=== PATIENT | female | born 1975 | race Caucasian/White ===

== ENCOUNTER → 2019-06-28 | Outpatient (CLI) | payer BC ==
--- NOTE | 2019-06-28 14:03 | RADIOLOGY REPORT (SQ) ---
EXAM DESCRIPTION: U/S NON-OB PELVIS TV W/O DOP IMAGES COMPLETED DATE/TIME: 06/28/2019 1:42 pm REASON FOR STUDY: (R10.2)PELVIC AND PERINEAL PAIN R10.2 PELVIC AND PERINEAL PAIN COMPARISON: None. TECHNIQUE: Dynamic and static grayscale images acquired of the pelvis via transvaginal approach and recorded on PACS. Additional selected color Doppler and spectral images recorded. LIMITATIONS: None. FINDINGS: UTERUS: Prior hysterectomy. ENDOMETRIAL STRIPE: Not applicable. CERVIX: Not applicable. RIGHT OVARY AND DOPPLER: Normal flow. There is a 2.9 x 3.8 x 2.2 cm cyst. There is free fluid in th e right adnexum. LEFT OVARY AND DOPPLER: Normal flow. There is a 1.3 x 1.7 x 1.5 cm cyst. There is free fluid in the left adnexae. FREE FLUID: Moderate free fluid throughout the pelvis. OTHER: No other significant finding. MEASUREMENTS: UTERUS: Not applicable. ENDOMETRIAL STRIPE: Not applicable. RIGHT OVARY: 4.5 x 4.4 x 3.8 cm. LEFT OVARY: 3.2 x 2.6 x 2.7 cm. IMPRESSION: Bilateral ovarian cysts as described. Moderate free fluid throughout the pelvis. Prior hysterectomy. TECHNICAL DOCUMENTATION: JOB ID: [id number] 2010 [employer]- All Rights Reserved Reading location - IP/workstation name: [email or web address]
== END ==
LOC: RAD 12:46
PROVIDERS: ATTEND Obstetrics & Gynecology
DX: N83.202 Unspecified ovarian cyst, left side (principal); N83.201 Unspecified ovarian cyst, right side; R10.2 Pelvic and perineal pain
CPT/HCPCS: 76830

== ENCOUNTER 2020-02-17 06:42 | Observation (INO) | payer BC ==
--- NOTE | 2020-02-17 08:17 | ER Document Report ---
ED GI/ - General Chief Complaint: Lower Abdominal Pain Stated Complaint: INTERNAL PAIN FROM SURGERY Time Seen by Provider: 02/17/20 08:16 Primary Care Provider: BRUCE FELIZ [Primary Care Provider] - Follow up as needed Notes: Patient is a 45-year-old female presents emergency department with the chief complaint of lower abdominal pain. Patient had emergency surgery on December 16 in [place], where they ended up having a hysterectomy for some cyst and she ended up also having bowel surgery also. 2 days ago, the patient started to have some lower abdominal pain. Patient states that when she eats she feels b loated. States that she has been having some diarrhea. States that she has some nausea, but denies any vomiting. States that she has been prescribed Metamucil, but makes her feel bloated. - Related Data Allergies/Adverse Reactions: banana Allergy (Verified 02/17/20 07:02) morphine Allergy (Verified 02/17/20 07:02) Home Medications: alprazola, levocetirizine Past Medical History - General Information source: Patient - Social History Smoking Status: Never Smoker Frequency of alcohol use: None Drug Abuse: None Family History: Reviewed & Not Pertinent Review of Systems - Review of Systems Notes: REVIEW OF SYSTEMS: CONSTITUTIONAL : Denies recent illness. Denies recent unintentional weight loss. Denies fever, chills, or sweats. EENT: Denies eye, ear, throat, or mouth pain, discharge, or symptoms. Denies nasal or sinus congestion. CARDIOVASCULAR: Denies chest pain. RESPIRATORY: Denies shortness of breath, cough, congestion, difficulty breathing, or wheezing. GASTROINTESTINAL: See HPI. GENITOURINARY: Denies difficulty urinating, burning, blood in urine, urgency or frequency. MUSCULOSKELETAL: Denies neck and back pain. Denies joint pain or swelling. SKIN: Denies rash, itchiness, or lesions HEMATOLOGIC : Denies easy bruising or bleeding. LYMPHATIC: Denies swollen, painful, enlarged glands. NEUROLOGICAL: Denies no numbness or tingling denies weakness. Denies headache. Denies altered mental status. Denies alteration in speech. PSYCHIATRIC: Denies stress, anxiety, alteration in sleep patterns, or depression. All other systems reviewed and negative. Physical Exam - Vital signs Vitals: Temp Pulse Resp BP Pulse Ox 98.1 F 106 H 16 138/100 H 96 02/17/20 07:05 02/17/20 07:05 02/17/20 07:05 02/17/20 07:05 02/17/20 07:05 - Notes Notes: PHYSICAL EXAMINATION: GENERAL: Appears well, healthy, well-nourished, no acute distress. HEAD: Normocephalic, atraumatic. EYES: PERRL, conjunctiva normal, all extraocular movements intact, sclera nonicteric ENT: Moist mucous membranes. NECK: Supple, no noticeable swelling, redness, rash. Normal range of motion. LUNGS: Equal breath sounds bilaterally and clear to auscultation. No wheezes rales or rhonchi. CARDIOVASCULAR: S1-S2, regular rate, regular rhythm. Radial pulses 2+, normal. ABDOMEN: Normoactive bowel sounds. Soft, very tender lower abdomen with moderate guarding, no rebound tenderness, and no masses palpated. EXTREMITIES: Normal strength and range of motion, no pitting or edema. No cyanosis. NEUROLOGICAL: Moves all extremities upon command. Strength 5/5 in all extremities. PSYCH: Normal mood, normal affect. SKIN: Warm, dry. No rash, lesions, ulcerations noted. Normal skin turgor. Course - Re-evaluation Re-evalutation: 02/17/20 11:09 Patient states that she is still in pain, but she is refusing pain medication at this time. She states that she "will be okay." States that she is afraid to take pain medicine, because she had morphine and Zofran before and it made her more nauseous and not feel well. Hematology is unremarkable. Chemistries are also unremarkable. Urinalysis is negative. Awaiting CT of the abdomen pelvis. 02/17/20 12:26 CT of the abdomen pelvis a moderate amount of fluid in the pelvis. Radiologist recommends transvaginal ultrasound. There are also surgical clips in the left lower quadrant. I spoke with Dr. Rodarte, the radiologist. He states that the right-sided pelvic atelectasis without hydronephrosis is a typing error. He states that he will write an addendum. 02/17/20 15:[address] Paul, the DRAINAGE INSPECTOR on-call. She discussed the pelvic ultrasound with Dr. Rodarte, the radiologist. At this time, the patient to the second floor. Rapid Covid test ordered for preop. - Vital Signs Vital signs: Temp Pulse Resp BP Pulse Ox 98.2 F 81 16 129/86 H 100 02/17/20 12:07 02/17/20 12:07 02/17/20 12:07 02/17/20 12:07 02/17/20 12:07 - Laboratory Results Result Diagrams: 02/17/20 08:05 02/17/20 08:05 Laboratory Results Interpreted: 02/17/20 08:05 Glucose 114 H Critical Laboratory Results Reviewed: No Critical Results - Radiology Results Critical Radiology Results Reviewed: No Critical Results Discharge - Discharge Clinical Impression: Pelvic pain, Pelvic fluid collection Condition: Stable Disposition: ADMITTED INPATIENT Admitting Provider: [facility] Unit Admitted: Post Referrals: LOCALMD,NO [Primary Care Provider] - Follow up as needed
[2020-02-17 08:31] LABS: ABSOLUTE EOSINOPHILS # (AUTO) 0.1 10^3/uL (0.0-0.6); ABSOLUTE LYMPHOCYTES (AUTO) 1.3 10^3/uL (0.5-4.7); ABSOLUTE MONOCYTES (AUTO) 0.4 10^3/uL (0.1-1.4); ABSOLUTE NEUT (AUTO) 4.1 10^3/uL (1.7-8.2); BASOPHILS % (AUTO) 0.6 % (0-2); EOSINOPHILS % (AUTO) 0.9 % (0-6); HEMATOCRIT 37.7 % (36.0-47.0); HEMOGLOBIN 12.9 g/dL (12.0-15.5); LYMPHOCYTES % (AUTO) 22.5 % (13-45); MEAN CORPUSCULAR HEMOGLOBIN 28.5 pg (27.0-33.4); MEAN CORPUSCULAR HGB CONC 34.1 g/dL (32.0-36.0); MEAN CORPUSCULAR VOLUME 84 fl (80-97); MONOCYTES % (AUTO) 6.7 % (3-13); PLATELET COUNT 228 10^3/uL (150-450); RED BLOOD COUNT 4.51 10^6/uL (3.72-5.28); RED CELL DISTRIBUTION WIDTH 13.3 % (11.5-14.0); SEGMENTED NEUTROPHILS % (AUTO) 69.3 % (42-78); TOTAL CELLS COUNTED % (AUTO) 100 %; WHITE BLOOD COUNT 5.9 10^3/uL (4.0-10.5)
[2020-02-17] MEDS ORDERED: ACETAMINOPHEN 325 MG TABLET PO ONE (08:33)
[2020-02-17 08:45] LABS: APPEARANCE,URINE CLEAR; BILIRUBIN,URINE NEGATIVE (NEGATIVE); COLOR,URINE STRAW; GLUCOSE, URINE NEGATIVE (NEGATIVE); KETONES,URINE NEGATIVE (NEGATIVE); LEUKOCYTE ESTERASE,URINE NEGATIVE (NEGATIVE); NITRITE,URINE NEGATIVE (NEGATIVE); PROTEIN,URINE NEGATIVE (NEGATIVE); UROBILINOGEN,URINE NEGATIVE mg/dL (<2.0)
[2020-02-17 08:55] LABS: ALBUMIN 4.7 g/dL (3.5-5.0); ALKALINE PHOSPHATASE 60 U/L (38-126); ANION GAP 10 (5-19); ASPARTATE AMINO TRANSFERASE 21 U/L (14-36); BILIRUBIN,DIRECT 0.2 mg/dL (0.0-0.4); BILIRUBIN,TOTAL 0.3 mg/dL (0.2-1.3); BLOOD UREA NITROGEN 10 mg/dL (7-20); CALCIUM 9.6 mg/dL (8.4-10.2); CARBON DIOXIDE 27 mmol/L (22-30); CHLORIDE 102 mmol/L (98-107); GLUCOSE 114 mg/dL (75-110); POTASSIUM 4.3 mmol/L (3.6-5.0)
[2020-02-17] MEDS ORDERED: NORMAL SALINE 1000 ML 1,000 ML IV ONE (09:02)
--- NOTE | 2020-02-17 11:59 | RADIOLOGY REPORT (SQ) ---
EXAM DESCRIPTION: CT ABD/PELVIS WITH IV ORAL IMAGES COMPLETED DATE/TIME: 02/17/2020 11:28 am REASON FOR STUDY: lower abdominal pain; recent bowel surgery COMPARISON: Ultrasound of the pelvis from 06/18/2019. TECHNIQUE: CT scan of the abdomen and pelvis performed using helical scanning technique with dynamic intravenous contrast injection. No oral contrast. Images reviewed with lung, soft tissue, and bone windows. Reconstructed coronal and sagittal MPR images reviewed. Delayed images for evaluation of the urinary system also acquired. All images stored on PACS. All CT scanners at this facility use dose modulation, iterative reconstruction, and/or weight based d osing when appropriate to reduce radiation dose to as low as reasonably achievable (ALARA). [facility]: Dose Right [facility]: CareDose [facility]: Dose Right [facility]: Teradose 4D [facility]: [place] CONTRAST TYPE AND DOSE: Contrast/concentration: Isovue 350.00 mmol/ml; Total Contrast Delivered: 75. 0 ml; Total Saline Delivered: 38.2 ml RENAL FUNCTION: GFR > 60. RADIATION DOSE: CT Rad equipment meets quality standard of care and radiation dose reduction techniq ues were employed. CTDIvol: 7.3 - 10.1 mGy. DLP: 1022 mGy-cm. LIMITATIONS: None. FINDINGS: LOWER CHEST: No acute abnormality. LIVER: The morphology of the liver is noncirrhotic. The geographic area of low attenuation along the falciform ligament (image 23 of series 3) could represent a perfusion variant or focal hepatic steat osis. The portal veins are patent. There is no hepatic mass. SPLEEN: No splenomegaly or splenic mass. PANCREAS: No acute gross abnormality of the pancreas. GALLBLADDER: Surgically absent. ADRENAL GLANDS: No mass or asymmetry. RIGHT KIDNEY AND URETER: There is mild pelvicaliectasis. The proximal ureter is patulous. There is no solid mass, nephrolithiasis, hydroureter or ureterolithiasis. LEFT KIDNEY AND URETER: There is no solid mass, hydronephrosis, nephrolithiasis, hydroureter or urete rolithiasis. AORTA AND VESSELS: No aneurysm or dissection of the abdominal aorta. RETROPERITONEUM: No retroperitoneal adenopathy, hemorrhage or mass. BOWEL AND PERITONEAL CAVITY: There are surgical clips in the left lower quadrant. There is no bowel obstruction, bowel wall thickening or pericolonic/ perienteric inflammation. There is no pneumatosis , free intraperitoneal gas or portal venous gas. There is no intra-abdominal fluid collection. APPENDIX: Normal. PELVIS: There is a moderate amount of fluid in the pelvis. The uterus is surgically absent and there are cystic lesions in both adnexa. ABDOMINAL WALL: No abdominal wall mass or hernia. BONES: No acute abnormality. OTHER: No other finding. IMPRESSION: 1. Cystic adnexal lesions a moderate amount of fluid in the pelvis. If of concern consi bailey correlation with a transvaginal pelvic ultrasound. 2. Surgical clips in the left lower quadrant. There is no intra-abdominal fluid collection or bowel obstruction. 3. Right-sided pelvicaliectasis without hydronephrosis. TECHNICAL DOCUMENTATION: JOB ID: [id number] Quality ID # [id number]: Final reports with documentation of one or more dose reduction techniques (e.g., Au tomated exposure control, adjustment of the mA and/or kV according to patient size, use of iterative reconstruction technique) 2010 [employer]- All Rights Reserved Reading location - IP/workstation name: [email or web address]
[2020-02-17] MEDS ORDERED: DICYCLOMINE HCL 10 MG CAPSULE PO ONE (12:25)
--- NOTE | 2020-02-17 13:39 | RADIOLOGY REPORT (SQ) ---
EXAM DESCRIPTION: U/S NON OB PEL LTD W/DOPPLER IMAGES COMPLETED DATE/TIME: 02/17/2020 1:20 pm REASON FOR STUDY: eval pelvic fluid from CT COMPARISON: CT of the abdomen and pelvis from 02/17/2020. TECHNIQUE: Dynamic and static grayscale images acquired of the pelvis via transabdominal approach an d recorded on PACS. Additional selected color Doppler and spectral images recorded. LIMITATIONS: None. FINDINGS: UTERUS: Surgically absent. RIGHT OVARY AND DOPPLER: Surgically absent. LEFT OVARY AND DOPPLER: The left ovary measures 5.9 x 5.4 x 5.8 cm and on Doppler there is intact art erial inflow and venous outflow within the ovarian stroma. There is an anechoic cyst in the left ova ry that measures 3.9 x 4 x 3.6 cm. FREE FLUID: There is a moderate amount of complex fluid in the pelvis and left adnexum that contains debris and septations. OTHER: No other finding. IMPRESSION: 1. Status post hysterectomy and right oophorectomy. 2. Moderate amount of complex fluid in the pelvis and left adnexum that contains debris and septatio ns. 3. 3.9 x 4 x 3.6 cm cyst in the left ovary. There is no evidence of ovarian torsion. TECHNICAL DOCUMENTATION: JOB ID: [id number] 2010 [employer]- All Rights Reserved Reading location - IP/workstation name: [email or web address]
[2020-02-17] MEDS ORDERED: METRONIDAZOLE 500 MG/NS RTU 500 MG/100 ML RTUPB IV SCH (17:00)
[2020-02-17] MEDS ORDERED: CEFOXITIN INJ 2 GM VIAL IV SCH (18:00)
[2020-02-17] MEDS ORDERED: CEFOXITIN SODIUM 2 GM in DEXTROSE 5%-WATER 100 ML IV SCH (18:00)
--- NOTE | 2020-02-17 18:51 | PDOC H&P ---
History of Present Illness Admission Date/PCP: 02/17/20 15:31 Patient complains of: lower abdominal pain History of Present Illness: CINDA FRANCISCO is a 45 year old female with h/o Hysterectomy (uterus/cvx only) 2019 presents for pelvic and abdominal pain for the last 2 days. She Had Cholecystectomy 2017. She reports that in November 2019 she had a fluid collection (unknown origin) that was drained and then after drainage they found multiple cysts on her Right ovary. 12/17/2019 she underwent L/S RSO but reportedly also had a bowel surgery (she thinks her ovary was attached to her bowel). She reports the ovarian cysts on right were not causing her pain but were recommended to have removed and she does not know specifically what bowel surgery she had - thinks was a small bowel resection. She denies fevers/chills/n/v. She does have loose stools but reports that this is not new problem. She reports abdominal pain with bowel movement and voiding. She denies frequency/dysuria. She does not know what caused her previous fluid collection and reports that she did get put on antibiotics after her surgery but not with the drainage of the fluid collection previously. She reports that she was not diagnosed with PID in the past. We reviewed that this fluid collection appears organized and is not likely a new issue and may be residual from her prior surgery. Reviewed with patient that would need to request records. Past Medical History LMP: 2019 Gynecological Infection: No Pulmonary Medical History: Reports: Asthma Past Surgical History Past Surgical History: Reports: Cholecystectomy, Hysterectomy, Other - Right ovary and bowel resection?, Social History Information Source: Patient Lives with: Family Smoking Status: Never Smoker Electronic Cigarette use?: No Frequency of Alcohol Use: None Hx Recreational Drug Use: No Drugs: None Hx Prescription Drug Abuse: No - Advance Directive Resuscitation Status: Full Code Family History Family History: Reviewed & Not Pertinent Parental Family History Reviewed: No Children Family History Reviewed: NA Sibling(s) Family History Reviewed.: NA Medication/Allergy Home Medications: Albuterol Sulfate [Proair Hfa Inhalation Aerosol 8.5 gm Mdi] 2 puff IH Q4HP PRN 02/17/20 Alprazolam [Xanax 0.5 mg Tablet] 0.5 mg PO QHS 02/17/20 Levocetirizine Dihydrochloride [Xyzal] 5 mg PO QHS 02/17/20 Allergies/Adverse Reactions: banana Allergy (Verified 02/17/20 07:02) morphine Allergy (Verified 02/17/20 07:02) Review of Systems Constitutional: ABSENT: anorexia, headache(s), weight gain, weight loss Cardiovascular: ABSENT: chest pain, dyspnea on exertion, edema, orthropnea, palpitations Respiratory: ABSENT: cough, hemoptysis Gastrointestinal: PRESENT: abdominal pain, bloating, diarrhea - loose stools since bowel surgery 2019 and saw GI Genitourinary: ABSENT: dysuria, hematuria Integumentary: ABSENT: rash, wounds Neurological: ABSENT: abnormal gait, abnormal speech, confusion, dizziness, focal weakness, syncope Psychiatric: ABSENT: anxiety, depression, homidical ideation, suicidal ideation Endocrine: ABSENT: cold intolerance, heat intolerance, polydipsia, polyuria Physical Exam - Physical Exam Vital Signs: Temp Pulse Resp BP Pulse Ox 98.0 F 86 18 119/90 H 100 02/17/20 17:42 02/17/20 17:42 02/17/20 17:42 02/17/20 17:42 02/17/20 17:42 Intake & Output 02/16/20 02/17/20 02/18/20 06:59 06:59 06:59 Intake Total 1000 Balance 1000 Weight 65.771 kg General appearance: PRESENT: no acute distress, well-developed, well-nourished Head exam: PRESENT: atraumatic, normocephalic Respiratory exam: PRESENT: clear to auscultation ronnie, symmetrical, unlabored Cardiovascular exam: PRESENT: RRR. ABSENT: diastolic murmur, rubs, systolic murmur Pulses: PRESENT: normal dorsalis pedis pul, +2 pedal pulses bilateral GI/Abdominal exam: PRESENT: normal bowel sounds, soft. ABSENT: distended, guarding, mass, organolmegaly, rebound, tenderness Rectal exam: PRESENT: deferred Extremities exam: PRESENT: full ROM. ABSENT: calf tenderness, clubbing, pedal edema Neurological exam: PRESENT: alert, awake, oriented to person, oriented to place, oriented to time, oriented to situation, CN II-XII grossly intact. ABSENT: motor sensory deficit Psychiatric exam: PRESENT: appropriate affect, normal mood. ABSENT: homicidal ideation, suicidal ideation Skin exam: PRESENT: dry, intact, warm. ABSENT: cyanosis, rash Result Laboratory Results: 02/17/20 08:05 02/17/20 08:05 02/17/20 02/17/20 02/17/20 08:00 08:05 08:05 WBC 5.9 RBC 4.51 Hgb 12.9 Hct 37.7 MCV 84 MCH 28.5 MCHC 34.1 RDW 13.3 Plt Count 228 Seg Neutrophils % 69.3 Sodium 139.1 Potassium 4.3 Chloride 102 Carbon Dioxide 27 Anion Gap 10 BUN 10 Creatinine 0.61 Est GFR ( Amer) > 60 Glucose 114 H Calcium 9.6 Total Bilirubin 0.3 AST 21 Alkaline Phosphatase 60 Total Protein 8.0 Albumin 4.7 Lipase 38.3 Urine Color STRAW Urine Appearance CLEAR Urine pH 6.0 Ur Specific [place] 1.010 Urine Protein NEGATIVE Urine Glucose (UA) NEGATIVE Urine Ketones NEGATIVE Urine Blood NEGATIVE Urine Nitrite NEGATIVE Ur Leukocyte Esterase NEGATIVE Urine WBC (Auto) 0 Impressions: Abdomen/Pelvis CT 02/17/20 00:00 IMPRESSION: 1. Cystic adnexal lesions a moderate amount of fluid in the pelvis. If of concern consider correlation with a transvaginal pelvic ultrasound. 2. Surgical clips in the left lower quadrant. There is no intra-abdominal fluid collection or bowel obstruction. 3. Right-sided pelvicaliectasis without hydronephrosis. Pelvis Ultrasound 02/17/20 12:25 IMPRESSION: 1. Status post hysterectomy and right oophorectomy. 2. Moderate amount of complex fluid in the pelvis and left adnexum that contains debris and septations. 3. 3.9 x 4 x 3.6 cm cyst in the left ovary. There is no evidence of ovarian torsion. Status: Imported from PACS Assessment & Plan - Diagnosis (1) Pelvic fluid collection Is this a current diagnosis for this admission?: Yes Plan: Admit to floor for IV antibiotics. Wet prep and GC/CT done. however, with h/o hysterectomy not likely of that source. Concern for her prior bowel surgery and this prior fluid collection that was drained. Possibly this is persistent from drainage 11/2019 and then her surgery 12/2019. may need to have general surgery consult depending on findings after drainage. Will need to send for culture. I have asked that if possible that drain be left in place to continue to drain this moderate fluid collection. Reviewed plan of care with patient and will request records from prior surgeries. Appreciate radiology assistance with patient. - Time Time Spent: 30 to 50 Minutes Critical Time spent with patient: Less than 15 minutes Medications reviewed and adjusted accordingly: Yes Anticipated Discharge Disposition: Home, Self Care Anticipated Discharge Timeframe: within 72 hours - Inpatient Certification Based on my medical assessment, after consideration of the patient's comorbidities, presenting symptoms, or acuity I expect that the services needed warrant INPATIENT care.: Yes Medical Necessity: Need For IV Fluids, Need for IV Antibiotics, Need for Surgery - need for IR drainage
[2020-02-17 19:22] LABS: BACTERIA (WET MOUNT) 4+ BACTERIA SEEN; EPITHELIALS (WET MOUNT) 3+ EPITHELIALS SEEN; RBCS (WET MOUNT) RARE RBCS SEEN; T.VAGINALIS (WET MOUNT) NO TRICHOMONAS SEEN; WBCS (WET MOUNT) 1+ WBCS SEEN; YEAST (WET MOUNT) NO YEAST SEEN
[2020-02-17 19:23] LABS: CHLAM PCR NOT DETECTED (NOT DETECT)
[2020-02-17] MEDS ORDERED: ALBUTEROL SULFATE HFA (90 MCG/PUFF) 8 GM MDI IH PRN (19:35)
[2020-02-17] MEDS ORDERED: LEVOCETIRIZINE DIHYDROCHLORIDE 5 MG PO SCH (22:00)
[2020-02-17] MEDS: CEFOXITIN SODIUM 2 GM in DEXTROSE 5%-WATER 100 ML IV SCH (22:04)
[2020-02-17] MEDS: METRONIDAZOLE 500 MG/NS RTU 500 MG/100 ML RTUPB IV SCH (23:46)
[2020-02-17] MEDS: ALPRAZOLAM 0.5 MG TABLET PO SCH (23:46)
[2020-02-17] MEDS: CETIRIZINE 5 MG TABLET PO SCH (23:50)
[2020-02-17] MEDS: ACETAMINOPHEN 325 MG TABLET PO PRN (23:54)
[2020-02-18] MEDS: CEFOXITIN SODIUM 2 GM in DEXTROSE 5%-WATER 100 ML IV SCH ×4 (03:43→20:52)
[2020-02-18] MEDS ORDERED: GLUCAGON,HUMAN RECOMB 1 MG INJ SUBCUT PRN (08:12)
[2020-02-18] MEDS ORDERED: DEXTROSE 50%-WATER 25 GM/50 ML DISP.SYRIN IV PRN ×2 (08:12)
[2020-02-18] MEDS ORDERED: DEXTROSE 40% GEL 15 GM TUBE PO PRN ×2 (08:12)
[2020-02-18] MEDS: METRONIDAZOLE 500 MG/NS RTU 500 MG/100 ML RTUPB IV SCH ×2 (10:33→21:35)
--- NOTE | 2020-02-18 12:37 | PDOC PROGRESS REPORT ---
Subjective Date:: 02/18/20 Subjective:: still continues to have pain Reason For Visit: PELVIC FLUID COLLECTION, POSSIBLE PID. Patient continues to endorse pain in her lower pelvis. She is tolerating the antibiotics well. IR will see patient tomorrow for possible drainage of her fluid collection. They did not have a provider available for conscious sedation today therefore this is being p ostponed to tomorrow since the patient is stable and doing relatively well. She is tolerating her diet and is passing gas. The patient added today that her previous adnexal surgery involved a "resecting" of her small instestines as the mass had attached itself to the small bowel. Physical Exam - Physical Exam Vital Signs: Temp Pulse Resp BP Pulse Ox 98.2 F 94 16 94/62 L 100 02/18/20 11:57 02/18/20 11:57 02/18/20 11:57 02/18/20 11:57 02/18/20 11:57 Intake & Output 02/17/20 02/18/20 02/19/20 06:59 06:59 06:59 Intake Total 1100 Balance 1100 Weight 65.771 kg General appearance: PRESENT: no acute distress, cooperative GI/Abdominal exam: PRESENT: soft, tenderness - with palpation the patient is quite tender but seems to tolerate sitting upright without difficulty Musculoskeletal exam: PRESENT: ambulatory, full ROM Result Laboratory Results: 02/17/20 08:05 02/17/20 08:05 Impressions: Abdomen/Pelvis CT 02/17/20 00:00 IMPRESSION: 1. Cystic adnexal lesions a moderate amount of fluid in the pelvis. If of concern consider correlation with a transvaginal pelvic ultrasound. 2. Surgical clips in the left lower quadrant. There is no intra-abdominal fluid collection or bowel obstruction. 3. Right-sided pelvicaliectasis without hydronephrosis. Pelvis Ultrasound 02/17/20 12:25 IMPRESSION: 1. Status post hysterectomy and right oophorectomy. 2. Moderate amount of complex fluid in the pelvis and left adnexum that contains debris and septations. 3. 3.9 x 4 x 3.6 cm cyst in the left ovary. There is no evidence of ovarian torsion. Assessment & Plan - Diagnosis (1) Pelvic fluid collection Is this a current diagnosis for this admission?: Yes (2) Pelvic pain Is this a current diagnosis for this admission?: Yes - Time Time Spent with patient: Less than 15 minutes Medications reviewed and adjusted accordingly: No Anticipated discharge: Home Anticipated DC Timeframe: within 48 hours - Inpatient Certification Based on my medical assessment, after consideration of the patient's comorbidities, presenting symptoms, or acuity I expect that the services needed warrant INPATIENT care.: Yes I certify that my determination is in accordance with my understanding of Medicare's requirements for reasonable and necessary INPATIENT services [42 CFR 412.3e].: Yes Medical Necessity: Need Close Monitoring Due to Risk of Patient Decompensation, Need for Pain Control, Need for IV Antibiotics - Plan Summary Plan Summary: hopefully IR is able to establish the nature of this mass. Dr. Paul indicated that she did ask for them to leave a pigtail drain in if possible to continue drainage for a while. Will continue to monitor WBC.
[2020-02-18] MEDS: ALPRAZOLAM 0.5 MG TABLET PO SCH (21:38)
[2020-02-18] MEDS: CETIRIZINE 5 MG TABLET PO SCH (21:39)
[2020-02-18] MEDS ORDERED: DICYCLOMINE HCL 10 MG CAPSULE PO ONE (22:00)
[2020-02-18] MEDS ORDERED: DICYCLOMINE HCL 10 MG CAPSULE ONE (23:42)
[2020-02-19] MEDS: CEFOXITIN SODIUM 2 GM in DEXTROSE 5%-WATER 100 ML IV SCH ×4 (03:10→20:51)
[2020-02-19] MEDS: METRONIDAZOLE 500 MG/NS RTU 500 MG/100 ML RTUPB IV SCH ×2 (10:52→22:19)
[2020-02-19 11:03] LABS: INTERNATIONAL RATION (INR) 1.13; PROTHROMBIN TIME 14.8 SEC (11.4-15.4)
[2020-02-19] MEDS ORDERED: FENTANYL CITRATE INJ/PF 100 MCG/2 ML AMPUL ONE ×2 (12:37)
[2020-02-19] MEDS ORDERED: MIDAZOLAM 2 MG/2 ML INJ ONE (12:37)
[2020-02-19] MEDS ORDERED: RINGERS SOLUTION,LACTATED 1,000 ML IV PRN (13:38)
[2020-02-19] MEDS ORDERED: ONDANSETRON HCL INJ/PF 4 MG/2 ML SDV IV PRN (13:38)
[2020-02-19] MEDS ORDERED: PROMETHAZINE HCL INJ 25 MG/1 ML VIAL IV PRN (13:38)
[2020-02-19] MEDS ORDERED: ONDANSETRON HCL INJ/PF 4 MG/2 ML SDV ONE (13:43)
--- NOTE | 2020-02-19 14:02 | RADIOLOGY REPORT (SQ) ---
EXAM DESCRIPTION: CT GUIDED PERCUT DRAIN W/CATH; CT NEEDLE PLACEMENT IMAGES COMPLETED DATE/TIME: 02/19/2020 1:15 pm REASON FOR STUDY: abdominal pain; ABDOMIAL PAIN POST HYSTERECTOMY COMPARISON: None. TECHNIQUE: CT guided pelvic drain placement performed with conscious sedation. CT Fluoroscopy Time: [address] scanners at this facility use dose modulation, iterative reconstruction, and/or weight based d osing when appropriate to reduce radiation dose to as low as reasonably achievable (ALARA). [facility]: Dose Right [facility]: CareDose [facility]: Dose Right [facility]: Teradose 4D [facility]: [employer] RADIATION DOSE: CT Rad equipment meets quality standard of care and radiation dose reduction techni ques were employed. CTDIvol: 6.6 - 18.9 mGy. DLP: 526 mGy-cm.mGy. FINDINGS: After obtaining informed consent and explaining the risks and benefits of conscious sedati on,the patient agreed to the procedure. Prior to the procedure, a time out was performed to verify th e patient's identity and planned procedure. IV sedation was administered and physician direction by the registered nurse using 1 milligrams of Ve rsed and 100 micrograms of fentanyl, for conscious sedation. Physiologic monitoring was provided befo re, during, and after sedation. The total sedation time was 30 minutes. Documentation face to face time, the performing proceduralist, spent monitoring the patient: [address] scanning was performed to localize the percutaneous site for the biopsy approach. After sterile skin prep and local lidocaine for skin and deep tissue anesthesia, a coaxial needle was used to access the fluid collection in the pelvis from a posterior approach. The needle was exchang ed for a guidewire. Following serial dilation, a 10 [place] APD catheter was positions and connected to drainage apparatus. A sterile dressing was applied. There were no immediate complications. Pathology is pending at the time of dictation. IMPRESSION: CT GUIDED DRAINAGE OF PELVIC FLUID COLLECTION. PATHOLOGY PENDING. COMMENT: Quality ID [id number]: Final reports for procedures using fluoroscopy that document radiation exp osure indices, or exposure time and number of fluorographic images (if radiation exposure indices are not available) Patient medication list reviewed: Yes- Quality ID# [id number]:Eligible professional attests to documenting i n the medical record they obtained, updated, or reviewed the patient's current medications.. TECHNICAL DOCUMENTATION: JOB ID: [id number] Quality ID# [id number]: Final reports with documentation of one or more dose reduction techniques (e.g., Aut omated exposure control, adjustment of the mA and/or kV according to patient size, use of iterative r econstruction technique) 2010 [employer]- All Rights Reserved Reading location - IP/workstation name: [email or web address]
[2020-02-19] MEDS: ACETAMINOPHEN 325 MG TABLET PO PRN ×2 (15:07→22:25)
--- NOTE | 2020-02-19 17:29 | PDOC PROGRESS REPORT ---
Subjective Date:: 02/19/20 Subjective:: Some pain at site of pig tail drain placement left buttock-Tylenol helps Has had some clear liquids and crackers . Not feeling hungry. Had nausea after the procedure but zofran has helped with that. Voiding without incidence Reason For Visit: PELVIC FLUID Physical Exam - Physical Exam Vital Signs: Temp Pulse Resp BP Pulse Ox 98.1 F 78 16 119/71 100 02/19/20 16:40 02/19/20 16:40 02/19/20 16:40 02/19/20 16:40 02/19/20 16:40 Intake & Output 02/18/20 02/19/20 02/20/20 06:59 06:59 06:59 Intake Total 1100 900 0 Balance 1100 900 0 Weight 65.771 kg 65.7 kg General appearance: PRESENT: no acute distress, cooperative Respiratory exam: PRESENT: clear to auscultation ronnie Cardiovascular exam: PRESENT: RRR, +S1, +S2 GI/Abdominal exam: PRESENT: soft, tenderness - mild tenderness on palpation lower abdomen Extremities exam: PRESENT: full ROM. ABSENT: calf tenderness, clubbing, pedal edema Psychiatric exam: PRESENT: appropriate affect, normal mood. ABSENT: homicidal i deation, suicidal ideation Skin exam: PRESENT: dry, intact, warm. ABSENT: cyanosis, rash Result Laboratory Results: 02/17/20 08:05 02/17/20 08:05 Impressions: Abdomen/Pelvis CT 02/17/20 00:00 IMPRESSION: 1. Cystic adnexal lesions a moderate amount of fluid in the pelvis. If of concern consider correlation with a transvaginal pelvic ultrasound. 2. Surgical clips in the left lower quadrant. There is no intra-abdominal fluid collection or bowel obstruction. 3. Right-sided pelvicaliectasis without hydronephrosis. Pelvis Ultrasound 02/17/20 12:25 IMPRESSION: 1. Status post hysterectomy and right oophorectomy. 2. Moderate amount of complex fluid in the pelvis and left adnexum that contains debris and septations. 3. 3.9 x 4 x 3.6 cm cyst in the left ovary. There is no evidence of ovarian torsion. Guidance Needle Placement CT 02/19/20 00:00 IMPRESSION: CT GUIDED DRAINAGE OF PELVIC FLUID COLLECTION. PATHOLOGY PENDING. Percutaneous Drainage 02/19/20 00:00 IMPRESSION: CT GUIDED DRAINAGE OF PELVIC FLUID COLLECTION. PATHOLOGY PENDING. Assessment & Plan - Diagnosis (1) Pelvic fluid collection Is this a current diagnosis for this admission?: Yes (2) Pelvic pain Is this a current diagnosis for this admission?: Yes - Time Time Spent with patient: Less than 15 minutes Anticipated discharge: Home Anticipated DC Timeframe: within 48 hours Disposition: Stable - Plan Summary Plan Summary: 45 yo with pelvic pain and complex fliuid collection in the pelvis: s/p IR drainage with pigtail drain left in place -VSS -Drain intact draining bloody drainage -Nausea managed with zofran -Voiding -Tolerating clears -Pain managed with tylenol -Cultures, cytology pending on fluid from IR procedure today which reports serosanquinous fluid 700cc -Continue IV antibiotics -Records of prior surgery pending -She tells me she has f/u in [place] with her surgeon there and with GI for colonoscopy beginning of March. Colonoscopy scheduled d/t pain and persisent diarrhea since her surgery there in December in which they removed and ovary and part of her bowel. She denies a prior dx of malignancy but does say she saw and Oncologist in [place]?? She lives there-visiting here.
[2020-02-19] MEDS: CETIRIZINE 5 MG TABLET PO SCH (22:20)
[2020-02-19] MEDS: ALPRAZOLAM 0.5 MG TABLET PO SCH (22:20)
[2020-02-20] MEDS: CEFOXITIN SODIUM 2 GM in DEXTROSE 5%-WATER 100 ML IV SCH ×4 (02:59→20:15)
[2020-02-20 08:04] LABS: ABSOLUTE EOSINOPHILS # (AUTO) 0.1 10^3/uL (0.0-0.6); ABSOLUTE LYMPHOCYTES (AUTO) 0.9 10^3/uL (0.5-4.7); ABSOLUTE MONOCYTES (AUTO) 0.3 10^3/uL (0.1-1.4); ABSOLUTE NEUT (AUTO) 2.2 10^3/uL (1.7-8.2); BASOPHILS % (AUTO) 0.5 % (0-2); EOSINOPHILS % (AUTO) 2.4 % (0-6); HEMATOCRIT 33.1 % (36.0-47.0); HEMOGLOBIN 11.4 g/dL (12.0-15.5); MEAN CORPUSCULAR HEMOGLOBIN 28.6 pg (27.0-33.4); MEAN CORPUSCULAR HGB CONC 34.4 g/dL (32.0-36.0); MEAN CORPUSCULAR VOLUME 83 fl (80-97); MONOCYTES % (AUTO) 8.8 % (3-13); PLATELET COUNT 206 10^3/uL (150-450); RED BLOOD COUNT 3.98 10^6/uL (3.72-5.28); RED CELL DISTRIBUTION WIDTH 13.1 % (11.5-14.0); SEGMENTED NEUTROPHILS % (AUTO) 62.3 % (42-78); TOTAL CELLS COUNTED % (AUTO) 100 %; WHITE BLOOD COUNT 3.5 10^3/uL (4.0-10.5)
[2020-02-20] MEDS: METRONIDAZOLE 500 MG/NS RTU 500 MG/100 ML RTUPB IV SCH (09:07)
--- NOTE | 2020-02-20 10:59 | PDOC PROGRESS REPORT ---
Subjective Date:: 02/20/20 Subjective:: pt states she feels better and is eating Reason For Visit: PELVIC FLUID Physical Exam - Physical Exam Vital Signs: Temp Pulse Resp BP Pulse Ox 97.8 F 82 18 96/59 L 97 02/20/20 10:00 02/20/20 07:28 02/20/20 07:28 02/20/20 07:28 02/20/20 07:28 Intake & Output 02/19/20 02/20/20 02/21/20 06:59 06:59 06:59 Intake Total 900 1580 Output Total 250 500 Balance 900 1330 -500 Weight 65.7 kg 65.9 kg General appearance: PRESENT: no acute distress GI/Abdominal exam: PRESENT: soft Result Laboratory Results: 02/20/20 07:35 02/17/20 08:05 02/20/20 07:35 WBC 3.5 L RBC 3.98 Hgb 11.4 L Hct 33.1 L MCV 83 MCH 28.6 MCHC 34.4 RDW 13.1 Plt Count 206 Seg Neutrophils % 62.3 Impressions: Abdomen/Pelvis CT 02/17/20 00:00 IMPRESSION: 1. Cystic adnexal lesions a moderate amount of fluid in the pelvis. If of concern consider correlation with a transvaginal pelvic ultrasound. 2. Surgical clips in the left lower quadrant. There is no intra-abdominal fl uid collection or bowel obstruction. 3. Right-sided pelvicaliectasis without hydronephrosis. Pelvis Ultrasound 02/17/20 12:25 IMPRESSION: 1. Status post hysterectomy and right oophorectomy. 2. Moderate amount of complex fluid in the pelvis and left adnexum that conta ins debris and septations. 3. 3.9 x 4 x 3.6 cm cyst in the left ovary. There is no evidence of ovarian torsion. Guidance Needle Placement CT 02/19/20 00:00 IMPRESSION: CT GUIDED DRAINAGE OF PELVIC FLUID COLLECTION. PATHOLOGY PENDING. Percutaneous Drainage 02/19/20 00:00 IMPRESSION: CT GUIDED DRAINAGE OF PELVIC FLUID COLLECTION. PATHOLOGY PENDING. Assessment & Plan - Time Time Spent with patient: Less than 15 minutes Medications reviewed and adjusted accordingly: Yes - Plan Summary Plan Summary: await results of culture and cytology
[2020-02-20] MEDS ORDERED: ONDANSETRON 4 MG TAB.RAPDIS PO PRN (22:52)
[2020-02-20] MEDS: ALPRAZOLAM 0.5 MG TABLET PO SCH (23:29)
[2020-02-20] MEDS: METRONIDAZOLE 500 MG TABLET PO SCH (23:52)
[2020-02-20] MEDS: CETIRIZINE 5 MG TABLET PO SCH (23:53)
[2020-02-21] MEDS: METRONIDAZOLE 500 MG TABLET PO SCH (09:11)
[2020-02-21] MEDS: CEPHALEXIN 500 MG CAPSULE PO SCH ×2 (09:11→14:47)
--- NOTE | 2020-02-21 13:25 | PDOC PROGRESS REPORT ---
Subjective Date:: 02/21/20 Subjective:: She feels much better today. Reason For Visit: PELVIC FLUID Physical Exam - Physical Exam Vital Signs: Temp Pulse Resp BP Pulse Ox 98.2 F 94 18 114/82 98 02/21/20 10:59 02/21/20 10:59 02/21/20 10:59 02/21/20 10:59 02/21/20 10:59 Intake & Output 02/20/20 02/21/20 02/22/20 06:59 06:59 06:59 Intake Total 1580 300 Output Total 250 710 20 Balance 1330 -410 -20 Weight 65.9 kg 70.1 kg General appearance: PRESENT: no acute distress, well-developed, well-nourished Head exam: PRESENT: atraumatic, normocephalic GI/Abdominal exam: PRESENT: normal bowel sounds, soft. ABSENT: distended, guarding, mass, organolmegaly, rebound, tenderness Result Laboratory Results: 02/20/20 07:35 02/17/20 08:05 Impressions: Abdomen/Pelvis CT 02/17/20 00:00 IMPRESSION: 1. Cystic adnexal lesions a moderate amount of fluid in the pelvis. If of concern consider correlation with a transvaginal pelvic ultrasound. 2. Surgical clips in the left lower quadrant. There is no intra-abdominal fluid collection or bowel obstruction. 3. Right-sided pelvicaliectasis without hydronephrosis. Pelvis Ultrasound 02/17/20 12:25 IMPRESSION: 1. Status post hysterectomy and right oophorectomy. 2. Moderate amount of complex fluid in the pelvis and left adnexum that contains debris and septations. 3. 3.9 x 4 x 3.6 cm cyst in the left ovary. There is no evidence of ovarian torsion. Guidance Needle Placement CT 02/19/20 00:00 IMPRESSION: CT GUIDED DRAINAGE OF PELVIC FLUID COLLECTION. PATHOLOGY PENDING. Percutaneous Drainage 02/19/20 00:00 IMPRESSION: CT GUIDED DRAINAGE OF PELVIC FLUID COLLECTION. PATHOLOGY PENDING. Check a CT scan and consider removal of catheter. Assessment & Plan - Diagnosis (1) Pelvic fluid collection Is this a current diagnosis for this admission?: Yes (2) Pelvic pain Is this a current diagnosis for this admission?: Yes - Time Time Spent with patient: 15-24 minutes Anticipated discharge: Home Anticipated DC Timeframe: within 48 hours - Will need to check for recollection. May be fluid from last surgery or perhaps lymphatic drainage.
--- NOTE | 2020-02-21 15:26 | RADIOLOGY REPORT (SQ) ---
EXAM DESCRIPTION: CT ABD/PELVIS ORAL ONLY IMAGES COMPLETED DATE/TIME: 02/21/2020 2:19 pm REASON FOR STUDY: followup pelvic drain COMPARISON: 02/17/2020 TECHNIQUE: CT scan of the abdomen and pelvis performed without intravenous contrast. Patient was gi marisel oral contrast. Images reviewed with lung, soft tissue, and bone windows. Reconstructed coronal an d sagittal MPR images reviewed. All images stored on PACS. All CT scanners at this facility use dose modulation, iterative reconstruction, and/or weight based d osing when appropriate to reduce radiation dose to as low as reasonably achievable (ALARA). [facility]: Dose Right [facility]: CareDose [facility]: Dose Right [facility]: Teradose 4D [facility]: Smart [employer] RADIATION DOSE: CT Rad equipment meets quality standard of care and radiation dose reduction techniq ues were employed. CTDIvol: 6.5 mGy. DLP: 344 mGy-cm.mGy. LIMITATIONS: None. FINDINGS: LOWER CHEST: No significant findings. No nodules or infiltrates. NON-CONTRASTED LIVER, SPLEEN, ADRENALS: Evaluation limited by lack of IV contrast. No identified sign ificant masses. PANCREAS: No masses. No peripancreatic inflammatory changes. GALLBLADDER: Surgically absent. RIGHT KIDNEY AND URETER: No suspicious masses. Assessment limited by lack of IV contrast. No signif icant calcifications. No hydronephrosis or hydroureter. LEFT KIDNEY AND URETER: No suspicious masses. Assessment limited by lack of IV contrast. No signifi cant calcifications. No hydronephrosis or hydroureter. AORTA AND RETROPERITONEUM: No aneurysm. No retroperitoneal masses or adenopathy. BOWEL AND PERITONEAL CAVITY: No evidence intestinal obstruction. No focal bowel wall thickening. Pe lvic fluid collection as below. APPENDIX: Normal in caliber, retrocecal in location. PELVIS, BLADDER, AND ABDOMINAL WALL:Significant decrease in size of previously seen complex pelvic fl uid collection status post pigtail catheter placement. There is a residual circumscribed rounded col lection within the left hemipelvis measuring 6.3 x 6.8 cm (series 2, image 71). This may represent f ocal loculated collection versus ovarian in etiology. Pigtail catheter remains in place and is adjac ent to this collection. There is additional small amount of high density pelvic free fluid (Hounsfie ld units 50) (series 2, image 70). BONES: No significant findings. OTHER: No other significant finding. IMPRESSION: 1. Significant decrease in size of the complex cystic fluid collection within the pelvi s status post pigtail catheter placement. There is a residual loculated round collection within the left hemipelvis measuring 6.3 x 6.8 cm. This may represent focal loculated collection versus ovarian in etiology. 2. Small amount of high-density residual pelvic free fluid suggestive of hemorrhage. Findings discussed with Dr. Ness at 1519 hours on 02/21/2020 COMMENT: Quality ID # [id number]: Final reports with documentation of one or more dose reduction techniques (e.g., Automated exposure control, adjustment of the mA and/or kV according to patient size, use of iterative reconstruction technique) TECHNICAL DOCUMENTATION: JOB ID: [id number] 2010 [employer]- All Rights Reserved Reading location - IP/workstation name: [email or web address]
[2020-02-21 16:37] VITALS: BP 109/70
[2020-02-21 17:18] LABS: HEMATOCRIT 34.4 % (36.0-47.0); MEAN CORPUSCULAR HEMOGLOBIN 29.3 pg (27.0-33.4); MEAN CORPUSCULAR HGB CONC 34.8 g/dL (32.0-36.0); MEAN CORPUSCULAR VOLUME 84 fl (80-97); PLATELET COUNT 257 10^3/uL (150-450); RED BLOOD COUNT 4.09 10^6/uL (3.72-5.28); RED CELL DISTRIBUTION WIDTH 13.2 % (11.5-14.0); WHITE BLOOD COUNT 3.9 10^3/uL (4.0-10.5)
== END 2020-02-21 17:35 | disposition home or self-care (01) ==
LOC: ER 06:42 → EH 15:31 → INTOOBSV 15:31 → 2S 18:15
PROVIDERS: ADMIT Student in an Organized Health Care Education/Training Program; ATTEND Student in an Organized Health Care Education/Training Program
DX: R18.8 Other ascites (principal); R10.2 Pelvic and perineal pain; R19.7 Diarrhea, unspecified; K91.89 Other postprocedural complications and disorders of digestive system; R11.0 Nausea; Y84.8 Other medical procedures as the cause of abnormal reaction of the patient, or of later complication, without mention of misadventure at the time of the procedure; Y92.239 Unspecified place in hospital as the place of occurrence of the external cause; J45.909 Unspecified asthma, uncomplicated; Z01.812 Encounter for preprocedural laboratory examination; Z20.822 Contact with and (suspected) exposure to COVID-19; Z90.49 Acquired absence of other specified parts of digestive tract; Z90.710 Acquired absence of both cervix and uterus; Z90.721 Acquired absence of ovaries, unilateral
CPT/HCPCS: 99285; 96360; 36415 ×4; 87040; 87205; 87070; 87210; 83690; 85025 ×2; 85027; 85610; 0241U ×4; 87075; 80053; 81001; 87491; 87591; 88162; 88305 ×2; 76857; 93976; 75989; 74176; 74177; 77012; G0378 ×4; C1729; C1769; C1713; J2250; J3490 ×7; J3010; J2405; J7060 ×4; J7030; J7120; J0694 ×4; C9803